=== PATIENT | female | born 2000 | race Two or more races ===

== ENCOUNTER 2025-07-23 17:56 | Emergency (ER) | payer MEDICAID | END 2025-07-23 22:35 | disposition home or self-care (01) | LOC: JD.ED 17:56 | DX: O9A.211 Injury, poisoning and certain other consequences of external causes complicating pregnancy, first trimester (principal); S30.1XXA Contusion of abdominal wall, initial encounter; W50.0XXA Accidental hit or strike by another person, initial encounter; Z3A.11 11 weeks gestation of pregnancy | CPT/HCPCS: 76801; 76801-26; 99283; 99284 ==